=== PATIENT | female | born 1975 | race Caucasian/White ===

== ENCOUNTER 2018-04-07 12:49 | Outpatient (CLI) | payer BC, MEDICAID ==
[2018-04-07] MEDS ORDERED: TIZA4CAP PO (13:26)
[2018-04-07] MEDS ORDERED: NAPR220C2 PO (13:26)
[2018-04-07] MEDS ORDERED: ACET-187 PO (13:26)
[2018-04-07] MEDS ORDERED: ALBU90AE INH (13:26)
== END 2018-04-07 23:59 | disposition home or self-care (01) ==
LOC: STAR 12:49
PROVIDERS: ATTEND Orthopaedic Surgery
DX: Z02.9 Encounter for administrative examinations, unspecified (principal)

== ENCOUNTER 2018-04-21 07:01 | Day surgery (SDC) | payer BC, MEDICAID ==
[~2018-04-21] VITALS: Ht 149.9 cm; Wt 74.3 kg
[~2018-04-21 07:01] MED LIST: ACET-187 PO; ALBU90AE INH; BUPIVACAINE/PF-EPI 0.5% 1:200K ONE; EPINEPHRINE TOPICAL SOLN 1 MG/ML, 30ML ONE; LIDOCAINE 1%-EPI 1:100K, 30ML ONE; NAPR220C2 PO; NEOSPORIN OINT, 15GM ONE; TIZA4CAP PO
[2018-04-21] MEDS ORDERED: GABAPENTIN 300 MG CAPSULE PO ONE (07:30)
[2018-04-21] MEDS ORDERED: ONDANSETRON ODT 8 MG PO ONE (07:30)
[2018-04-21] MEDS ORDERED: ACETAMINOPHEN 500 MG TABLET PO ONE (07:30)
[2018-04-21] MEDS ORDERED: LACTATED RINGERS 1,000 ML IV SCH (07:33)
[2018-04-21 07:35] VITALS: BP 114/77
[2018-04-21] MEDS ORDERED: MIDAZOLAM 1 MG/ML, 2ML ONE (07:41)
[2018-04-21] MEDS ORDERED: FENTANYL PF 100 MCG/2ML ONE (07:41)
[2018-04-21 08:13] LABS: HCG UR SG 1.026 (1.003-1.030)
[2018-04-21] MEDS ORDERED: KETOROLAC 30 MG/1 ML ONE (08:52)
[2018-04-21] MEDS ORDERED: [UNRECOGNIZED DRUG - OTHER] PO PRN (09:00)
[2018-04-21] MEDS ORDERED: TEMPLATE NON-FORMULARY MED. (Albuterol Sulfate (Proair Respiclick) 0 PUFF) INH PRN (09:00)
[2018-04-21] MEDS ORDERED: NAPROXEN SODIUM 220 MG PO PRN (09:00)
[2018-04-21] MEDS ORDERED: TIZANIDINE HCL 4 MG PO SCH (09:00)
[2018-04-21] MEDS ORDERED: PROPOFOL 10 MG/ML, 20ML ONE (09:08)
[2018-04-21] MEDS ORDERED: DEXAMETHASONE 4 MG/ML, 1ML ONE (09:08)
[2018-04-21] MEDS ORDERED: CEFAZOLIN 1,000 MG ONE (09:08)
[2018-04-21] MEDS ORDERED: BUPIVACAINE/PF-EPI 0.5% 1:200K INFIL ONE (09:09)
[2018-04-21] MEDS ORDERED: LIDOCAINE 1%-EPI 1:100K, 30ML INFIL ONE (09:10)
[2018-04-21] MEDS ORDERED: MEPERIDINE/PF 25MG/0.5ML IVPush PRN (09:30)
[2018-04-21] MEDS ORDERED: ONDANSETRON 2MG/ML, 2ML IV PRN (09:30)
[2018-04-21] MEDS ORDERED: PROMETHAZINE 25 MG/ML, 1ML IV PRN (09:30)
[2018-04-21] MEDS ORDERED: FENTANYL PF 100 MCG/2ML IV PRN (09:30)
[2018-04-21] MEDS ORDERED: OXYcodone 5 MG/5 ML ORAL.SOL UDC PO PRN (09:30)
[2018-04-21] MEDS ORDERED: MIDAZOLAM 1 MG/ML, 2ML IV PRN (09:30)
[2018-04-21] MEDS ORDERED: SCOPOLAMINE PATCH, 1.5MG PATCH.TD72 TD PRN (09:30)
[2018-04-21] MEDS ORDERED: ALBUTEROL/IPRATROPIUM 2.5MG/0.5MG, 3 ML NPPB PRN (09:30)
[2018-04-21] MEDS ORDERED: hydrALAzine 20 MG/ML, 1ML IV PRN (09:30)
[2018-04-21] MEDS ORDERED: OXYcodone 5 MG/5 ML ORAL.SOL UDC ONE (09:34)
[2018-04-21] MEDS ORDERED: HYDROmorphone 2 MG/ML, 1ML ONE (09:34)
[2018-04-21] MEDS: HYDROmorphone 2 MG/ML, 1ML IVPush PRN ×2 (09:35→09:41)
== END 2018-04-21 13:48 | disposition home or self-care (01) ==
LOC: OUT 07:01
PROVIDERS: ATTEND Orthopaedic Surgery
DX: M65.861 Other synovitis and tenosynovitis, right lower leg (principal); M94.261 Chondromalacia, right knee; J45.909 Unspecified asthma, uncomplicated; D64.9 Anemia, unspecified; K21.9 Gastro-esophageal reflux disease without esophagitis; Z88.1 Allergy status to other antibiotic agents; Z88.0 Allergy status to penicillin; Z88.8 Allergy status to other drugs, medicaments and biological substances; Z72.89 Other problems related to lifestyle
CPT/HCPCS: 29875; 81025; J0690; J1100; J1170; J1885; J2250; J2704; J3010; J3490; J7120; Q0162

== ENCOUNTER 2020-08-17 00:42 | Emergency (ER) | payer BC, MEDICAID ==
[~2020-08-17] VITALS: Ht 149.9 cm; Wt 75.4 kg
[~2020-08-17 00:42] MED LIST changes: -BUPIVACAINE/PF-EPI 0.5% 1:200K ONE; -EPINEPHRINE TOPICAL SOLN 1 MG/ML, 30ML ONE; -LIDOCAINE 1%-EPI 1:100K, 30ML ONE; -NEOSPORIN OINT, 15GM ONE
[2020-08-17 00:46] VITALS: BP 135/67
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
== END 2020-08-17 02:08 | disposition home or self-care (01) ==
LOC: ED 01:12
DX: S00.83XA Contusion of other part of head, initial encounter (principal); S00.511A Abrasion of lip, initial encounter; Y04.8XXA Assault by other bodily force, initial encounter; Y93.89 Activity, other specified; Y92.89 Other specified places as the place of occurrence of the external cause; Y99.8 Other external cause status
CPT/HCPCS: 99281